=== PATIENT | male | born 1975 | race Two or more races ===

== ENCOUNTER 2020-05-06 05:45 | Emergency (ER) | payer BC ==
[2020-05-06] MEDS ORDERED: Albuterol HFA 18 Gm Inhaler INH ONE (06:21)
[2020-05-06] MEDS ORDERED: predniSONE 20 MG Tab PO ONE (06:21)
--- NOTE | 2020-05-06 06:26 | EDM.PDOC ---
ED HPI GENERAL MEDICAL PROBLEM - General Chief Complaint: General Stated Complaint: ALLERGY Time Seen by Provider: 05/06/20 05:49 - History of Present Illness INITIAL COMMENTS - FREE TEXT/NARRATIVE: 45-year-old male with history of hypertension he has a history of asthma trouble in the remote past related allergies but has not had trouble for some time. He used to have inhalers but they were all . Patient underwent pulmonary function testing and respirator fit testing 5 days ago for his work. He states that every time he has to do this he develops asthma symptoms in the following days and required steroids. He has not done this in 4 years. Patient reports shortness of breath that is quite minimal at this time as well as a cough his symptoms are more pronounced when he is resting and improved with exertion. He has no chest pain pleuritic or otherwise he has no history of diabetes. No abdominal pain no fevers or chills. lung Pain Score (Numeric/FACES): 3 - Related Data Allergies Allergy/AdvReac Type Severity Reaction Status Date / Time trichloroacetic acid Allergy Other Verified 05/06/20 06:08 [From Tri-Chlor] Home Meds: Home Meds Cetirizine HCl [Zyrtec] 1 dose PO ASDIRECTED 05/06/20 [History] Montelukast Sodium [Singulair] 1 dose PO ASDIRECTED 05/06/20 [History] hydroCHLOROthiazide [Hydrochlorothiazide] 1 dose .ROUTE ASDIRECTED 05/06/20 [History] predniSONE [Prednisone] 40 mg PO DAILY 4 Days #8 tablet 05/06/20 [Rx] Past Medical History Cardiovascular History: Reports: Hypertension Respiratory History: Reports: Asthma - Infectious Disease History Infectious Disease History: Reports: Chicken Pox ED ROS GENERAL - Review of Systems Review Of Systems: See Below Free Text/Narrative/Comment: General: No fever. Skin: No rash. Eyes: No vision problems. ENT: No sore throat. Neck: No neck stiffness. Respiratory: Per HPI Cardiac: No chest pain. Gastrointestinal: No nausea, vomiting or abdominal pain. Urinary: No dysuria. Musculoskeletal: No myalgias/arthralgias. Neurologic: No headache. ED EXAM, GENERAL - Physical Exam Exam: See Below Free Text/Narrative:: General Appearance: No acute distress, appears comfortable Skin: No rash HEENT: Normocephalic/atraumatic, sclera anicteric, mucous membranes moist Neck: Normal range of motion Chest and Lungs: Bilateral breath sounds, clear to auscultation Cardiovascular: Regular rate and rhythm, no murmur Abdomen: Soft, non-tender Back: Normal Musculoskeletal: No edema or tenderness Neurologic: Awake, alert, no obvious deficits, moving all extremities Psychiatric: Appropriate, cooperative Course - Vital Signs Last Recorded V/S: Last Vital Signs Temp 98.7 F 05/06/20 06:04 Pulse 97 05/06/20 06:04 Resp 20 05/06/20 06:04 BP 160/102 H 05/06/20 06:04 Pulse Ox 94 L 05/06/20 06:04 - Orders/Labs/Meds Orders: Active Orders 24 hr Category Date Time Status RT Post Treatment Assessment [RC] Click to Edit Care 05/06/20 06:21 Ordered RT Pre-Treatment Assessment [RC] Click to Edit Care 05/06/20 06:21 Ordered Albuterol [Ventolin HFA] Med 05/06/20 06:21 Once 1 gm INH ONETIME ONE predniSONE Med 05/06/20 06:21 Once 40 mg PO ONETIME ONE Departure - Departure Time of Disposition: 06:24 Disposition: Home, Self-Care 01 Condition: Good Clinical Impression: Asthma attack - Discharge Information *PRESCRIPTION DRUG MONITORING PROGRAM REVIEWED*: Not Applicable *COPY OF PRESCRIPTION DRUG MONITORING REPORT IN PATIENT TIERRA: Not Applicable Prescriptions: predniSONE [Prednisone] 40 mg PO DAILY 4 Days #8 tablet Instructions: Metered Dose Inhaler (No Spacer Used) Referrals: [facility] [Outside] Additional Instructions: I encourage you to take 2 puffs of the albuterol inhaler every 6 hours while you are awake for the next few days. Your next dose of prednisone should be tomorrow morning. If your cough worsens you develop a fever chest pain or worsening trouble breathing please return to the ER. The following information is given to patients seen in the emergency department who are being discharged to home. This information is to outline your options for follow-up care. We provide all patients seen in our emergency department with a follow-up referral. The need for follow-up, as well as the timing and circumstances, are variable depending upon the specifics of your emergency department visit. If you don't have a primary care physician on staff, we will provide you with a referral. We always advise you to contact your personal physician following an emergency department visit to inform them of the circumstance of the visit and for follow-up with them and/or the need for any referrals to a consulting specialist. The emergency department will also refer you to a specialist when appropriate. This referral assures that you have the opportunity for follow-up care with a specialist. All of these measure are taken in an effort to provide you with optimal care, which includes your follow-up. Under all circumstances we always encourage you to contact your private physician who remains a resource for coordinating your care. When calling for follow-up care, please make the office aware that this follow-up is from your recent emergency room visit. If for any reason you are refused follow-up, please contact the [facility] Emergency Department at and asked to speak to the emergency department charge nurse. Sepsis Event Note (ED) - Evaluation Sepsis Screening Result: No Definite Risk - Focused Exam Vital Signs: Vital Signs Temp Pulse Resp BP Pulse Ox 05/06/20 06:04 98.7 F 97 20 160/102 H 94 L - My Orders Last 24 Hours: My Active Orders 05/06/20 06:21 RT Post Treatment Assessment [RC] Click to Edit RT Pre-Treatment Assessment [RC] Click to Edit Albuterol [Ventolin HFA] 1 gm INH ONETIME ONE predniSONE 40 mg PO ONETIME ONE - Assessment/Plan Last 24 Hours: My Active Orders 05/06/20 06:21 RT Post Treatment Assessment [RC] Click to Edit RT Pre-Treatment Assessment [RC] Click to Edit Albuterol [Ventolin HFA] 1 gm INH ONETIME ONE predniSONE 40 mg PO ONETIME ONE Assessment:: 45-year-old male presenting with signs and symptoms that are most consistent with mild asthma. Lungs relatively clear at this time. Patient has no tachycardia or hypoxia he has no chest pain pleuritic or otherwise he has no risk factors for PE. He has no focality to his lung sounds he has no fever pneumonia considered but felt unlikely pneumothorax also considered but again breath sounds are equal bilaterally. Patient's work of breathing is normal. Patient provided with a new albuterol inhaler will give 40 of prednisone here and 4-day burst of 40 of prednisone. Strict return precautions were discussed and understood need follow-up with primary care doctor. Patient had a chest x- ray and blood work for silica exposure done through his job last week.
[2020-05-06] MEDS ORDERED: Albuterol 8 GM Inhaler INH ONE (06:28)
[2020-05-06] MEDS ORDERED: Albuterol HFA 18 Gm Inhaler INH STA (06:32)
== END 2020-05-06 06:40 | disposition home or self-care (01) ==
LOC: MW.ED 05:45
DX: J45.909 Unspecified asthma, uncomplicated (principal); I10 Essential (primary) hypertension; Z79.899 Other long term (current) drug therapy; Z88.8 Allergy status to other drugs, medicaments and biological substances
CPT/HCPCS: 99284; A9270; J3535-GY